=== PATIENT | male | born 1985 ===

== ENCOUNTER 2025-08-16 12:24 | Emergency (ER) | payer OTHER ==
[~2025-08-16] VITALS: Ht 167.6 cm; Wt 68.0 kg
[2025-08-16] MEDS ORDERED: FAMOTIDINE/PF 20 MG/2 ML VIAL IV ONE (14:15)
[2025-08-16] MEDS ORDERED: ONDANSETRON HCL 2 MG/ML VIAL IV ONE (14:15)
[2025-08-16] MEDS ORDERED: 0.9 % SODIUM CHLORIDE 1,000 ML IV ONE (14:15)
== END 2025-08-16 12:31 | disposition left against medical advice (07) ==
LOC: ER 12:25
DX: R11.2 Nausea with vomiting, unspecified (principal)